=== PATIENT | male | born 1995 | race Caucasian/White ===

== ENCOUNTER 2018-05-16 19:42 | Emergency (ER) | payer OTHER ==
[~2018-05-16] VITALS: Ht 182.9 cm; Wt 135.2 kg
[2018-05-16 19:44] VITALS: BP 138/80
== END 2018-05-16 20:48 | disposition home or self-care (01) ==
LOC: ED 19:55
DX: M26.621 Arthralgia of right temporomandibular joint (principal); H66.91 Otitis media, unspecified, right ear
CPT/HCPCS: 99283

== ENCOUNTER 2018-06-23 13:58 | Emergency (ER) | payer OTHER ==
[~2018-06-23] VITALS: Ht 182.9 cm; Wt 135.2 kg
[2018-06-23 14:08] VITALS: BP 131/68
--- NOTE | 2018-06-23 14:47 | NUR ---
COUGH WITH ACCOMPANYING CP FOR A FEW DAYS. TO XRAY
== END 2018-06-23 15:31 | disposition home or self-care (01) ==
LOC: ED 15:10
DX: J20.9 Acute bronchitis, unspecified (principal); J45.909 Unspecified asthma, uncomplicated
CPT/HCPCS: 71046; 93005; 99283